=== PATIENT | male | born 1980 | race Two or more races ===

== ENCOUNTER 2016-10-07 10:45 | Emergency (ER) | payer OTHER ==
[~2016-10-07] VITALS: Ht 167.6 cm; Wt 127.2 kg
[2016-10-07 10:49] VITALS: BP 134/80
== END 2016-10-07 13:10 | disposition home or self-care (01) ==
LOC: ED 10:45
DX: Z76.0 Encounter for issue of repeat prescription (principal); G89.29 Other chronic pain; M54.9 Dorsalgia, unspecified